=== PATIENT | female | born 1935 | race Caucasian/White ===

== ENCOUNTER 2016-08-15 19:05 | Emergency (ER) | payer MEDICARE ==
[2016-08-15 21:28] LABS: HEMOGLOBIN 12.4 gm/dl (12.3-15.3); RED BLOOD COUNT 4.22 M/UL (4.00-5.10); WHITE BLOOD COUNT 9.9 K/UL (4.5-11.0)
[2016-12-24] MEDS ORDERED: OMEPRAZOLE20 M1 PO (03:19)
[2016-12-24] MEDS ORDERED: DIFLUCAN200 MG PO (03:19)
[2016-12-24] MEDS ORDERED: OXYCODONE H5 MG/5 ML PO (03:20)
[2016-12-24] MEDS ORDERED: PHENERGAN 12.12.5 M1 PO (03:22)
[2016-12-24] MEDS ORDERED: POTASSIUM20 MEQ/11 GT (03:23)
[2016-12-27] MEDS ORDERED: FLAGYL500 MG PO (13:12)
[2016-12-27] MEDS ORDERED: LEVAQUIN750 MG PO (13:13)
== END 2016-08-15 23:53 | disposition home or self-care (01) ==
LOC: ER1 19:05
PROVIDERS: Emergency Medicine
DX: M54.5 Low back pain (principal); C14.0 Malignant neoplasm of pharynx, unspecified
CPT/HCPCS: 36415; 80053; 81001; 82550; 82553; 83605; 83690; 83874; 84484; 85025; 85610; 85730; 87086; 93005; 96374; 96375; 96376; 99284; J1885; J2930

== ENCOUNTER 2016-10-10 12:50 | Inpatient (IN) | payer MEDICARE ==
[~2016-10-10] VITALS: Ht 163.8 cm; Wt 64.9 kg
[2016-10-10 13:47] LABS: HEMOGLOBIN 12.3 gm/dl (12.3-15.3); RED BLOOD COUNT 4.3 M/UL (4.00-5.10); WHITE BLOOD COUNT 6.7 K/UL (4.5-11.0)
[2016-10-10 14:00] LABS: BUN/CREATININE RATIO 26 (0-10)
[2016-10-11 02:14] LABS: HEMOGLOBIN 10.9 gm/dl (12.3-15.3); RED BLOOD COUNT 3.83 M/UL (4.00-5.10); WHITE BLOOD COUNT 5.5 K/UL (4.5-11.0)
[2016-10-11] MEDS ORDERED: ERYTHROMYCIN O3.5 GM OP (02:22)
[2016-10-11] MEDS ORDERED: LISINOPRIL20 MG PO (02:23)
[2016-10-11] MEDS ORDERED: NEURONTIN 300300 MG PO (02:23)
[2016-10-11] MEDS ORDERED: SERTRALINE HCL50 MG PO (02:24)
[2016-10-11] MEDS ORDERED: NORVASC 5 MG TAB5 MG PO (02:24)
[2016-10-11 02:36] LABS: BUN/CREATININE RATIO 18 (0-10)
[2016-10-12 05:51] LABS: HEMOGLOBIN 9.9 gm/dl (12.3-15.3); RED BLOOD COUNT 3.52 M/UL (4.00-5.10); WHITE BLOOD COUNT 4.3 K/UL (4.5-11.0)
[2016-10-12 06:39] LABS: BUN/CREATININE RATIO 17 (0-10)
[2016-10-13 06:05] LABS: HEMOGLOBIN 10.3 gm/dl (12.3-15.3); RED BLOOD COUNT 3.69 M/UL (4.00-5.10); WHITE BLOOD COUNT 3.3 K/UL (4.5-11.0)
[2016-10-13 06:22] LABS: BUN/CREATININE RATIO 18 (0-10)
[2016-10-13] MEDS ORDERED: NORCO 5-325 TA1 EACH PO (12:01)
[2016-10-13] MEDS ORDERED: IBUPROFEN400 MG PO (12:01)
[2016-10-13] MEDS ORDERED: ROCEPHIN 2 GM AD2 GM IV (12:19)
[2016-12-24] MEDS ORDERED: OMEPRAZOLE20 M1 PO (03:19)
[2016-12-24] MEDS ORDERED: DIFLUCAN200 MG PO (03:19)
[2016-12-24] MEDS ORDERED: OXYCODONE H5 MG/5 ML PO (03:20)
[2016-12-24] MEDS ORDERED: PHENERGAN 12.12.5 M1 PO (03:22)
[2016-12-24] MEDS ORDERED: POTASSIUM20 MEQ/11 GT (03:23)
[2016-12-27] MEDS ORDERED: FLAGYL500 MG PO (13:12)
[2016-12-27] MEDS ORDERED: LEVAQUIN750 MG PO (13:13)
== END 2016-10-13 16:09 | disposition home health service (06) | DRG 548 ==
LOC: ER1 12:50 → M/S 22:58 → ZEROF 22:58 → M/S 10-11 01:11
PROVIDERS: Emergency Medicine; Family Medicine; Orthopaedic Surgery; Physician Assistant Medical; ADMIT Internal Medicine
PROC: 0X9 Anatomical Regions, Upper Extremities, Drainage (ICD-10-PCS; 2016-10-11)
PROC: 0R9N3ZX Drainage of Right Wrist Joint, Percutaneous Approach, Diagnostic (ICD-10-PCS; principal; 2016-10-11 15:00)
DX: M00.831 Arthritis due to other bacteria, right wrist (principal); D61.810 Antineoplastic chemotherapy induced pancytopenia; N39.0 Urinary tract infection, site not specified; Z43.1 Encounter for attention to gastrostomy; C14.0 Malignant neoplasm of pharynx, unspecified; R31.9 Hematuria, unspecified; I10 Essential (primary) hypertension; R13.10 Dysphagia, unspecified; E87.6 Hypokalemia; E86.0 Dehydration; R53.1 Weakness; T45.1X5A Adverse effect of antineoplastic and immunosuppressive drugs, initial encounter; Z88.8 Allergy status to other drugs, medicaments and biological substances; Z92.3 Personal history of irradiation; Z79.899 Other long term (current) drug therapy; Z88.5 Allergy status to narcotic agent; Z88.1 Allergy status to other antibiotic agents; Z80.9 Family history of malignant neoplasm, unspecified
CPT/HCPCS: 36415; 71010; 71020; 73110; 73201; 80048; 80053; 80202; 81001; 83605; 83690; 83735; 83880; 84132; 84484; 84550; 85025; 85027; 85610; 85730; 86140; 87040; 87070; 87075; 87086; 87205; 89051; 89060; 93005; 96361; 96374; 96375; 96376; 97110; 97116; 99285; G0378; J0696; J1650; J2001; J2250; J2270; J2405; J2543; J2765; J3010; J3370; J7030; J7050; J7070; J7120; Q0162; Q9962

== ENCOUNTER 2017-01-23 07:12 | Inpatient (IN) | payer MEDICARE ==
[~2017-01-23] VITALS: Ht 165.1 cm; Wt 63.5 kg
[~2017-01-23 07:12] MED LIST: DIFLUCAN200 MG PO; ERYTHROMYCIN O3.5 GM OP; FLAGYL500 MG PO; IBUPROFEN400 MG PO; LEVAQUIN750 MG PO; LISINOPRIL20 MG PO; NEURONTIN 300300 MG PO; NORCO 5-325 TA1 EACH PO; NORVASC 5 MG TAB5 MG PO; OMEPRAZOLE20 M1 PO; OXYCODONE H5 MG/5 ML PO; PHENERGAN 12.12.5 M1 PO; POTASSIUM20 MEQ/11 GT; ROCEPHIN 2 GM AD2 GM IV; SERTRALINE HCL50 MG PO
[2017-01-23 09:15] LABS: HEMOGLOBIN 11.3 gm/dl (12.3-15.3); RED BLOOD COUNT 4.02 M/UL (4.00-5.10); WHITE BLOOD COUNT 9.6 K/UL (4.5-11.0)
[2017-01-23] MEDS ORDERED: NORCO 5-325 TA1 EACH PO (17:54)
[2017-01-23] MEDS ORDERED: FLEXERIL 10 MG10 MG PO (17:54)
[2017-01-23] MEDS ORDERED: MEGACE 400400 MG/10 PO (17:58)
[2017-01-24 03:33] LABS: HEMOGLOBIN 9.5 gm/dl (12.3-15.3)
[2017-01-24 03:34] LABS: RED BLOOD COUNT 3.36 M/UL (4.00-5.10); WHITE BLOOD COUNT 14.5 K/UL (4.5-11.0)
[2017-01-25 05:13] LABS: HEMOGLOBIN 9.7 gm/dl (12.3-15.3); RED BLOOD COUNT 3.53 M/UL (4.00-5.10)
[2017-01-25 05:14] LABS: WHITE BLOOD COUNT 8.9 K/UL (4.5-11.0)
[2017-01-26 05:22] LABS: BUN/CREATININE RATIO 18 (0-10)
[2017-01-27 05:39] LABS: BUN/CREATININE RATIO 21 (0-10)
[2017-01-28 05:43] LABS: BUN/CREATININE RATIO 24 (0-10)
[2017-01-28] MEDS ORDERED: PROTONIX 40 MG40 M1 PO (17:12)
[2017-01-28] MEDS ORDERED: LEVAQUIN500 MG PO (17:13)
[2017-01-28] MEDS ORDERED: LACTINEX TABLET1 EA PO (17:15)
[2017-01-28] MEDS ORDERED: MYCOSTATIN100000 UTS PO (17:16)
== END 2017-01-28 17:40 | disposition home or self-care (01) | DRG 871 ==
LOC: ER1 07:12 → ZEROF 13:14 → MED SURG 4 13:14 → CCU 13:14 → MED SURG 4 01-25 12:50
PROVIDERS: Internal Medicine; Nurse Practitioner Family; ADMIT Family Medicine
DX: A41.9 Sepsis, unspecified organism (principal); J18.9 Pneumonia, unspecified organism; E87.2 Acidosis; E87.1 Hypo-osmolality and hyponatremia; E86.0 Dehydration; I10 Essential (primary) hypertension; E04.1 Nontoxic single thyroid nodule; D64.89 Other specified anemias; R13.10 Dysphagia, unspecified; G62.9 Polyneuropathy, unspecified; G89.4 Chronic pain syndrome; D63.8 Anemia in other chronic diseases classified elsewhere; C09.9 Malignant neoplasm of tonsil, unspecified; Z90.710 Acquired absence of both cervix and uterus; Z79.899 Other long term (current) drug therapy; Z82.49 Family history of ischemic heart disease and other diseases of the circulatory system
CPT/HCPCS: 36415; 71010; 71020; 71250; 80048; 80053; 80202; 81001; 82550; 82553; 83605; 83690; 83735; 83874; 84132; 84439; 84443; 84484; 85025; 85027; 87040; 87278; 87899; 93005; 96361; 96374; 96375; 99285; J1650; J1956; J2405; J2543; J2550; J3370; J7030; J7050; J7070; Q0162